=== PATIENT | female | born 1955 | race Caucasian/White ===

== ENCOUNTER 2018-11-10 09:17 | Observation (INO) | payer OTHER ==
[~2018-11-10] VITALS: Ht 160 cm; Wt 135.2 kg
[~2018-11-10 09:17] MED LIST: ASPI325 PO; BENZ100A PO; BP MED; CEPH500 PO; CYCL10 PO; DIGO.125 PO; DILT120 PO; DILTIAZEM 24HR240 MG PO; DOXY100T53 PO; ELIQUIS5 MG PO; HYDACE5 PO; LEVSOD100; NEBI5 PO; ROBITUSSIN DM PO
[2018-11-10] MEDS ORDERED: CARDIZEM PO (09:46)
[2018-11-10 10:37] LABS: BASOPHILS ABSOLUTE AUTO 0.06 K/mm3 (0.00-0.23); BASOPHILS PERCENT AUTO 1 % (0-2); EOSINOPHILS ABSOLUTE AUTO 0.14 K/mm3 (0.00-0.68); EOSINOPHILS PERCENT AUTO 2 % (0-6); Hematocrit 45.1 % (33.0-51.0); Hemoglobin 14.9 g/dL (11.5-16.0); IMMATURE GRAN ABSOLUTE AUTO 0.02 K/mm3 (0.00-0.10); IMMATURE GRAN PERCENT AUTO 0 % (0-1); LYMPHOCYTES ABSOLUTE AUTO 2.01 K/mm3 (0.84-5.20); LYMPHOCYTES PERCENT AUTO 28 % (21-46); MONOCYTES ABSOLUTE AUTO 0.54 K/mm3 (0.16-1.47); MONOCYTES PERCENT AUTO 8 % (4-13); Mean Corpuscular HGB 30.2 pg (26.0-34.0); Mean Corpuscular Volume 91 fL (80-100); Mean Platelet Volume 10.3 fL (9.1-12.4); NEUTROPHILS PERCENT AUTO 61 % (41-73); Platelet Count 316 K/mm3 (150-400); RDW Coefficient Variation 13.1 % (11.7-14.2); RDW Standard Deviation 43.5 fL (35.1-46.3); Red Blood Cell Count 4.94 M/mm3 (3.80-5.20); White Blood Cell Count 7.17 K/mm3 (4.00-11.30)
[2018-11-10 10:44] LABS: Alanine Aminotransfer (ALT/SGP 36 U/L (12-78); Albumin, Blood 3.5 g/dL (3.4-5.0); Albumin/Globulin Ratio 0.8 (0.8-1.8); Alk Phos 125 U/L (50-136); Anion Gap 6 mmol/L (6-16); Aspartate Aminotrans (AST/SGOT 18 U/L (12-37); Bilirubin, Total 0.5 mg/dL (0.1-1.0); Blood Urea Nitrogen 14 mg/dL (8-24); Bun/Creatinine Ratio 17.1 (12.0-20.0); CO2, Blood 27 mmol/L (21-32); Calcium, Blood 10.2 mg/dL (8.5-10.1); Chloride, Blood 105 mmol/L (98-108); Creatinine, Blood 0.82 mg/dL (0.40-1.00); Globulin, Blood 4.3 g/dL (2.2-4.0); Glomerular Filtration Rate >60 (60-); Glucose, Blood 126 mg/dL (70-99); Potassium, Blood 4.1 mmol/L (3.5-5.5); Sodium, Blood 138 mmol/L (136-145); Total Protein, Blood 7.8 g/dL (6.4-8.2); Troponin I <0.015 ng/mL (0.000-0.040)
--- NOTE | 2018-11-10 19:34 | NUR ---
SHIFT SUMMARY: PATIENT ADMIT (OBSERVATION) FROM ED THIS SHIFT; FULL ADMISSION COMPLETED. PT A&O; CALM AND COOPERATIVE WITH CARE. NO C/O PAIN THIS SHIFT. SERIAL TROPONINS ORDERED. REPORT GIVEN TO ONCOMING RN.
--- NOTE | 2018-11-11 04:58 | NUR ---
SHIFT SUMMARY THE PATIENT PRESENTED THIS SHIFT WITH VITALS WNL, A&O X4 AND WITH LUNGS THAT WERE CLEAR. THE PATIENT IS INDEPENDENT IN HER ROOM, AND IS UP TO THE RESTROOM AT WILL. THE PATIENT COMPLAINED OF A HEADACHE AT THE START OF THE SHIFT AND AN ORDER FOR TYLENOL WAS GOTTEN FRON THE DOCTOR. THE PATIENT HAS BEEN SLEEPING WHEN CHECKED UPON, WILL CONTINUE TO MONITOR.
--- NOTE | 2018-11-11 07:07 | NUR ---
ASSUMED CARE OF PT- BEDSIDE REPORT COMPLETE WITH NIGHT DEJAN HDZ. PER REPORT PT ALERT, ORIENTED, AND INDEPENDENT IN THE ROOM. PT ADMITTED FOR CHEST DISCOMFORT, AFIB ON TELE ALL NIGHT NO EVENTS, PER REPORT. PT HAS HAD NO FURTHER C/O CHEST PAIN, MEDICATED WITH TYLENOL FOR HEADACHE, POSSIBLY D/T NITRO PATCH; ALL PER REPORT FROM NIGHT DEJAN HDZ. WILL CONTINUE TO MONITOR.
[2018-11-11] MEDS ORDERED: DILT30 PO (18:15)
[2018-11-11] MEDS ORDERED: ATOR40TA PO (18:17)
[2018-11-11] MEDS ORDERED: DILT180 PO (18:17)
--- NOTE | 2018-11-11 18:49 | NUR ---
DISCHARGE NOTE- PT DISCHARGED HOME, MEDS FAXED TO [facility] PER PT REQUEST. PT WAS GIVEN VERBAL AND WRITTEN DISCHARGE INSTRUCTIONS AND ACKNOWLEDGED UNDERSTANDING OF THEM. IV AND TELE DC'D AT THE TIME OF DISCHARGE. PT FAMILY IS GOING TO TAKE HER HOME WHEN SHE IS DRESSED PT DECLINED ESCORT AND W/C.
== END 2018-11-11 19:00 | disposition home or self-care (01) ==
LOC: ER 09:17 → MEDS 09:18
PROVIDERS: Emergency Medicine; ADMIT Internal Medicine
DX: R07.9 Chest pain, unspecified (principal); I10 Essential (primary) hypertension; I48.2 Chronic atrial fibrillation; E66.01 Morbid (severe) obesity due to excess calories; Z88.6 Allergy status to analgesic agent; Z88.5 Allergy status to narcotic agent; Z88.2 Allergy status to sulfonamides; Z91.013 Allergy to seafood; Z79.02 Long term (current) use of antithrombotics/antiplatelets; Z79.899 Other long term (current) drug therapy; Z68.43 Body mass index [BMI] 50.0-59.9, adult
CPT/HCPCS: 36415; 71046; 80053; 83735; 84484; 85025; 93005; 93010; 96374; 99285-25; G0378

== ENCOUNTER 2019-02-18 07:56 | Day surgery (SDC) | payer OTHER ==
[~2019-02-18] VITALS: Ht 160 cm; Wt 139.0 kg
[~2019-02-18 07:56] MED LIST changes: +ATOR40TA PO; +CARDIZEM PO; +DILT30 PO
--- NOTE | 2019-02-18 11:26 | NUR ---
SUMMARY: PT HAS HAD UNCOMPLICATED POST PROCEDURE COURSE. EATING, DRINKING WITHOUT DIFFICULTY. VSS. TR BAND IN PLACE TO RIGHT WRIST. CMS INTACT. NO BLEEDING OR SWELLING NOTED. CAP REFILL BRISK. VISITING WITH FAMILY AT BEDSIDE.
--- NOTE | 2019-02-18 11:47 | NUR ---
REVIEWED DISCHARGE INSTRUCTIONS WITH PATIENT AND ROOMMATE, BOTH OF WHOM VERBALIZE UNDERSTANDING OF ALL INSTRUCTIONS GIVEN. TR BAND DEFLATION INITIATED. NO BLEEDING OR SWELLING NOTED. CMS REMAINS INTACT.
--- NOTE | 2019-02-18 14:24 | NUR ---
LATE ENTRY: IV D/C TIP INTACT AND PATIENT DISCHARGED HOME AT 1215. DRESSED SELF WITH MINIMAL ASSISTANCE. DISCHARGED VIA W/C WITH FRIEND TO DRIVE HER. CMS TO RIGHT HAND REMAINS INTACT AND CAP REFILL BRISK.
== END 2019-02-18 13:22 | disposition home or self-care (01) ==
LOC: MHTC 07:56
DX: I25.10 Atherosclerotic heart disease of native coronary artery without angina pectoris (principal); I48.91 Unspecified atrial fibrillation; R06.00 Dyspnea, unspecified; I10 Essential (primary) hypertension; I08.1 Rheumatic disorders of both mitral and tricuspid valves; G47.33 Obstructive sleep apnea (adult) (pediatric); F41.9 Anxiety disorder, unspecified; M19.90 Unspecified osteoarthritis, unspecified site; E66.01 Morbid (severe) obesity due to excess calories; Z88.8 Allergy status to other drugs, medicaments and biological substances; Z88.2 Allergy status to sulfonamides; Z79.899 Other long term (current) drug therapy; Z79.01 Long term (current) use of anticoagulants; Z88.5 Allergy status to narcotic agent; Z91.013 Allergy to seafood; Z68.43 Body mass index [BMI] 50.0-59.9, adult
CPT/HCPCS: 93454; 99152; 99153; C1769; C1894; J1644; J2250; J3010; J7030; Q9967

== ENCOUNTER → 2019-04-25 | Outpatient (CLI) | payer OTHER | END | disposition home or self-care (01) | LOC: LAB SHORT 09:45 → LAB 09:45 | DX: L03.116 Cellulitis of left lower limb (principal) | CPT/HCPCS: 87070; 87205 ==

== ENCOUNTER 2019-05-20 07:30 | Day surgery (SDC) | payer OTHER | END 2019-05-20 23:16 | disposition home or self-care (01) | LOC: MOI US 07:30 | DX: N63.22 Unspecified lump in the left breast, upper inner quadrant (principal) | CPT/HCPCS: 19083; 77065; 88304; A4648 ==

== ENCOUNTER 2020-10-28 16:26 | Emergency (ER) | payer OTHER, SELFPAY ==
[~2020-10-28] VITALS: Ht 160 cm; Wt 132.9 kg
[2020-10-28 16:49] LABS: BASOPHILS ABSOLUTE AUTO 0.09 K/mm3 (0.00-0.23); BASOPHILS PERCENT AUTO 1 % (0-2); EOSINOPHILS PERCENT AUTO 2 % (0-6); Hematocrit 45.4 % (33.0-51.0); Hemoglobin 14.8 g/dL (11.5-16.0); IMMATURE GRAN ABSOLUTE AUTO 0.02 K/mm3 (0.00-0.10); IMMATURE GRAN PERCENT AUTO 0 % (0-1); LYMPHOCYTES ABSOLUTE AUTO 2.33 K/mm3 (0.84-5.20); LYMPHOCYTES PERCENT AUTO 28 % (21-46); MONOCYTES ABSOLUTE AUTO 0.69 K/mm3 (0.16-1.47); MONOCYTES PERCENT AUTO 8 % (4-13); Mean Corpuscular HGB 29.8 pg (26.0-34.0); Mean Corpuscular HGB Conc 32.6 g/dL (31.5-36.5); Mean Corpuscular Volume 92 fL (80-100); Mean Platelet Volume 10.1 fL (9.1-12.4); NEUTROPHILS ABSOLUTE AUTO 5.08 K/mm3 (1.96-9.15); NEUTROPHILS PERCENT AUTO 60 % (41-73); Platelet Count 289 K/mm3 (150-400); RDW Coefficient Variation 12.9 % (11.7-14.2); Red Blood Cell Count 4.96 M/mm3 (3.80-5.20); White Blood Cell Count 8.41 K/mm3 (4.00-11.30)
[2020-10-28 17:24] LABS: Alanine Aminotransfer (ALT/SGP 27 U/L (12-78); Albumin, Blood 3.4 g/dL (3.4-5.0); Albumin/Globulin Ratio 0.8 (0.8-1.8); Alk Phos 109 U/L (50-136); Anion Gap 6 mmol/L (6-16); Aspartate Aminotrans (AST/SGOT 16 U/L (12-37); Bilirubin, Total 0.4 mg/dL (0.1-1.0); Blood Urea Nitrogen 16 mg/dL (8-24); Bun/Creatinine Ratio 25.3 (12.0-20.0); CO2, Blood 26 mmol/L (21-32); Calcium, Blood 10.1 mg/dL (8.5-10.1); Chloride, Blood 108 mmol/L (98-108); Creatinine, Blood 0.63 mg/dL (0.40-1.00); Glomerular Filtration Rate >60 (60-); Glucose, Blood 148 mg/dL (70-99); Sodium, Blood 140 mmol/L (136-145); Total Protein, Blood 7.4 g/dL (6.4-8.2)
[2020-10-28 17:31] LABS: Troponin I <0.015 ng/mL (0.000-0.040)
[2020-10-28] MEDS ORDERED: Vitamin D2000 UNIT PO (17:34)
== END 2020-10-28 18:10 | disposition home or self-care (01) ==
LOC: ER 16:26
PROVIDERS: Physician Assistant
DX: I48.91 Unspecified atrial fibrillation (principal); I10 Essential (primary) hypertension; Z79.01 Long term (current) use of anticoagulants; Z79.899 Other long term (current) drug therapy; Z88.2 Allergy status to sulfonamides; Z88.5 Allergy status to narcotic agent; Z91.013 Allergy to seafood
CPT/HCPCS: 36415; 71046; 80053; 84484; 85025; 93005; 93010; 99285-25; A9270

== ENCOUNTER 2022-07-29 06:55 | Day surgery (SDC) | payer OTHER, MEDICARE ==
[~2022-07-29 06:55] MED LIST changes: +Vitamin D2000 UNIT PO
[2022-07-30] MEDS ORDERED: FURO20 PO (14:20)
[2022-07-30] MEDS ORDERED: Vitamin B-12100 MCG PO (14:20)
== END 2022-08-04 ==
LOC: MOI US 08-04 08:58
DX: C50.811 Malignant neoplasm of overlapping sites of right female breast (principal)
CPT/HCPCS: 19285; 77065; A4648

== ENCOUNTER 2022-08-06 09:31 | Day surgery (SDC) | payer OTHER ==
[~2022-08-06] VITALS: Ht 162.6 cm; Wt 130.3 kg
[~2022-08-06 09:31] MED LIST changes: +FURO20 PO; +Vitamin B-12100 MCG PO
--- NOTE | 2022-08-06 12:19 | NUR ---
Ambulatory in [facility] warming gown applied. Surgical site prepped with 2% Chlorhexidine cloth wipe. History, Chart, Medications and Allergies reviewed before start of procedure.Lungs clear T/O to Auscultation. Patient confirms NPO status and agrees with scheduled surgery. Patient States Post-Procedure ride home has been arranged. Patient reports completing Chlorhexadine shower X2 prior to admission to hospital.
--- NOTE | 2022-08-06 12:40 | NUR ---
assumed care of patient report recieved patient complaints of being cold placed on warmer at this time denies any other needs.
== END 2022-08-06 17:01 | disposition home or self-care (01) ==
LOC: NM 09:31 → ORSCMMR 09:32 → NM 10:30
PROVIDERS: Surgery
PROC: 07B50ZZ Excision of Right Axillary Lymphatic, Open Approach (ICD-10-PCS; principal; 2022-08-06 13:00)
PROC: 0HBT0ZZ Excision of Right Breast, Open Approach (ICD-10-PCS; principal; 2022-08-06 13:00)
DX: C50.811 Malignant neoplasm of overlapping sites of right female breast (principal); Z88.2 Allergy status to sulfonamides; Z88.8 Allergy status to other drugs, medicaments and biological substances; Z79.01 Long term (current) use of anticoagulants
CPT/HCPCS: 38792; 76098; 88307; 88342; A9270; A9520; J0690; J1100; J1885; J2250; J2405; J2704; J2795; J3010; J7120; Q9968

== ENCOUNTER 2024-10-17 11:27 | Emergency (ER) | payer MEDICARE ==
[~2024-10-17] VITALS: Ht 160 cm; Wt 121.1 kg
[2024-10-17] MEDS ORDERED: NS 1,000 ML IV SCH (11:50)
[2024-10-17 11:58] LABS: BASOPHILS ABSOLUTE AUTO 0.08 K/mm3 (0.00-0.23); BASOPHILS PERCENT AUTO 1 % (0-2); EOSINOPHILS ABSOLUTE AUTO 0.15 K/mm3 (0.00-0.68); EOSINOPHILS PERCENT AUTO 1 % (0-6); Hematocrit 43.9 % (33.0-51.0); Hemoglobin 15.1 g/dL (11.5-16.0); IMMATURE GRAN ABSOLUTE AUTO 0.03 K/mm3 (0.00-0.10); IMMATURE GRAN PERCENT AUTO 0 % (0-1); LYMPHOCYTES PERCENT AUTO 21 % (21-46); MONOCYTES ABSOLUTE AUTO 0.68 K/mm3 (0.16-1.47); MONOCYTES PERCENT AUTO 6 % (4-13); Mean Corpuscular HGB Conc 34.4 g/dL (31.5-36.5); Mean Corpuscular Volume 90 fL (80-100); Mean Platelet Volume 10.1 fL (9.1-12.4); NEUTROPHILS ABSOLUTE AUTO 8.52 K/mm3 (1.96-9.15); NEUTROPHILS PERCENT AUTO 71 % (41-73); Platelet Count 266 K/mm3 (150-400); RDW Coefficient Variation 12.9 % (11.7-14.2); RDW Standard Deviation 42.2 fL (35.1-46.3); Red Blood Cell Count 4.87 M/mm3 (3.80-5.20); White Blood Cell Count 11.96 K/mm3 (4.00-11.30)
[2024-10-17 12:20] LABS: Albumin, Blood 3.6 g/dL (3.4-5.0); Albumin/Globulin Ratio 0.8 (0.8-1.8); Bilirubin, Total 0.4 mg/dL (0.1-1.0); Bun/Creatinine Ratio 27.1 (12.0-20.0); Calcium, Blood 10.2 mg/dL (8.5-10.1); Creatinine, Blood 0.52 mg/dL (0.40-1.00); Globulin, Blood 4.6 g/dL (2.2-4.0); Potassium, Blood 4.2 mmol/L (3.5-5.5); Total Protein, Blood 8.2 g/dL (6.4-8.2)
[2024-10-17] MEDS ORDERED: Meclizine HCl 25 MG Tab PO ONE (13:10)
[2024-10-17 14:00] VITALS: BP 149/99
[2024-10-17] MEDS ORDERED: MECL25 PO (14:28)
== END 2024-10-17 14:41 | disposition home or self-care (01) ==
LOC: ER 11:27
PROVIDERS: Physician Assistant
DX: R42 Dizziness and giddiness (principal); I48.91 Unspecified atrial fibrillation; I10 Essential (primary) hypertension; Z88.2 Allergy status to sulfonamides; Z88.5 Allergy status to narcotic agent; Z91.013 Allergy to seafood; Z79.899 Other long term (current) drug therapy
CPT/HCPCS: 70450; 80053; 84484; 85025; 93005; 93010; 96360; 99284-25; A9270; J7030